=== PATIENT | male | born 1980 | race Hispanic/Latino ===

== ENCOUNTER 2023-04-17 23:19 | Emergency (ER) | payer BC ==
[~2023-04-17] VITALS: Ht 167.6 cm; Wt 93.4 kg
[2023-04-17 23:59] LABS: BASOPHILS # (AUTO) 0.06 K/uL (0.00-0.20); BASOPHILS % (AUTO) 0.5 % (0.0-5.0); EOSINOPHILS # (AUTO) 0.12 K/uL (0.00-0.70); IMMATURE GRANULOCYTE ABSOLUTE 0.04 K/uL (0-1); LYMPHOCYTES # (AUTO) 6.8 K/uL (1.0-4.8); LYMPHOCYTES % (AUTO) 54.1 % (21.0-51.0); MEAN CORPUSCULAR HEMOGLOBIN 29.2 pg (27.0-33.0); MEAN CORPUSCULAR HGB CONC 34.5 g/dL (32.0-36.0); MEAN CORPUSCULAR VOLUME 84.5 fL (79-99); MONOCYTES # (AUTO) 0.8 K/uL (0.1-1.0); MONOCYTES % (AUTO) 6.3 % (3.0-13.0); NEUTROPHILS # (AUTO) 4.7 K/uL (1.8-7.7); NEUTROPHILS % (AUTO) 37.8 % (40.0-77.0); PLATELET COUNT (AUTO) 260 K/uL (130-400); RED BLOOD CELL COUNT(AUTO) 4.97 MIL/uL (4.50-6.20); RED CELL DISTRIBUTION WIDTH 12.3 % (11.0-15.5); WHITE BLOOD COUNT (AUTO) 12.5 K/uL (4.8-10.8)
[2023-04-18] MEDS ORDERED: KETOROLAC 30MG VIAL (30MG/ML) IVP ONE
[2023-04-18] MEDS ORDERED: 0.9%NACL 1000ML 1,000 ML IV ONE
[2023-04-18 00:47] LABS: BILIRUBIN,TOTAL 0.3 mg/dL (0.2-1.0); CREATININE 1.3 mg/dL (0.5-1.5); POTASSIUM 3.1 mmol/L (3.5-5.1); TOTAL PROTEIN, SERUM 7.6 g/dL (6.0-8.3)
[2023-04-18] MEDS ORDERED: IBUP-1493 PO ×2 (00:55→02:32)
[2023-04-18] MEDS ORDERED: TAMS-1 PO ×2 (00:55→02:32)
[2023-04-18] MEDS ORDERED: TRAM50TA4 PO ×2 (00:55→02:32)
[2023-04-18] MEDS ORDERED: MORPHINE 2 MG SYG IVP ONE (01:00)
[2023-04-18] MEDS ORDERED: ONDANSETRON 4MG INJ IVP ONE (01:00)
[2023-04-18 02:00] VITALS: BP 148/89; PULSE 74; RESP 17; O2SAT 97
== END 2023-04-18 02:37 | disposition home or self-care (01) ==
LOC: EDH 23:19
DX: N13.2 Hydronephrosis with renal and ureteral calculous obstruction (principal); I10 Essential (primary) hypertension; E11.9 Type 2 diabetes mellitus without complications; E78.00 Pure hypercholesterolemia, unspecified; Z90.49 Acquired absence of other specified parts of digestive tract; Z79.899 Other long term (current) drug therapy
CPT/HCPCS: 99284; 80053; 83690; 85025; 36415; 74176; 96374; 96375; 96361; J2270; J7030; J2405; J1885